=== PATIENT | female | born 1970 | race Caucasian/White ===

== ENCOUNTER → 2016-11-22 | Outpatient (CLI) | payer BC ==
[2016-11-22 12:12] LABS: Appearance,Urine Clear (Clear); Bilirubin,Urine Negative (Negative); Glucose,Urine (UA) Negative (Negative); Ketones,Urine Negative (Negative); Leukocyte Esterase,Urine Negative (Negative); Nitrite,Urine Negative (Negative); PH, Urine 6.5 (5.0-8.0); Protein,Urine Negative (Negative); Specific Gravity,Urine 1.016 (1.001-1.035); UA Billing (MACRO vs. MICRO) CHEM; Urobilinogen,Urine <2.0 mg/dL (<2.0)
--- NOTE | 2016-11-22 22:04 | WWHP ---
DATE OF SERVICE: 11/22/2016. CHIEF COMPLAINT: The patient is here for her routine gynecologic exam and mammogram. HPI: This is a 46-year-old G1, P1 with an LMP of 2007. The patient is status post endometrial ablation in 2007 and has been amenorrheic since then. She developed significant hot flashes and was seen by an cut off machine unloader who did blood testing, which confirmed that she is menopausal. The patient states they are tolerable and have been better with gabapentin which she uses for her chronic sciatica. She has been experiencing some discomfort in the area of her bladder. She states she will wake up very uncomfortable to the point where it is slightly painful and this is usually relieved when she voids. She has had some issues with bladder discomfort and bladder tenderness. She saw Dr. Campos over the last year. She states she was told to return if she is having urine symptoms or UTI symptoms. PAST MEDICAL HISTORY: Chronic back pain sciatica for many years, hiatal hernia. Dr. Bal is her primary care physician. MEDICATIONS: 1. Motrin 800 mg p.r.n. 2. Gabapentin daily. 3. Subutex t.i.d. ALLERGIES: BACTRIM AND MACROBID. PAST SURGICAL HISTORY: LEEP procedure of the cervix in 1997, [employer] endometrial ablation in 2007, upper endoscopy and colonoscopy in 2016. Past COMMUNICATIONS ADMINISTRATOR history: She did have a LEEP procedure in 1997 for an abnormal Pap smear and has been amenorrheic since an endometrial ablation. She states blood testing in 2016 confirmed menopause. She has no history of STDs. She was once told she had a small uterine fibroid. SOCIAL HISTORY: She admits to smoking about 1/2 pack of cigarettes per day denies alcohol and drug use. She has been since 2014. She works for a [employer]. FAMILY HISTORY: Unchanged from the 2015 H&P. REVIEW OF SYSTEMS: She has gained about 18 pounds over the last year. She denies respiratory or cardiac problems. GI: Some food seemed to have caused problems for her gallbladder. PHYSICAL EXAM: Blood pressure 131/86. Height 5 feet 9 inches. Weight 197 pounds. Temperature 98.2, pulse 80. This a well-developed, well-nourished white female who is alert and oriented x3 in no acute distress. HEENT is within normal limits. NECK: Supple without mass or thyromegaly. CHEST AND LUNGS: Clear to auscultation. HEART: Regular rate and rhythm. Breasts are without mass or discharge. Axillary exam negative for adenopathy. BACK: Negative for CVA tenderness. ABDOMEN: Soft, nontender, without palpable masses. PELVIC EXAM: Normal external genitalia. Cervix and vagina appear normal. There is no unusual discharge. There is no cervical motion tenderness. The uterus is midposition, nongravid size and nontender. There are no palpable adnexal masses or tenderness. There is minimal tenderness in the area of the bladder, without palpable masses. Rectal exam negative for mass or tenderness and is negative for occult blood. EXTREMITIES: Nontender. IMPRESSION: 1. A 46-year-old female is probably menopausal. 2. Minimal bladder tenderness otherwise unremarkable gynecologic exam. 3. Urinary symptoms consisting of bladder discomfort upon waking each morning. Differential diagnosis will be discomfort from a full bladder, urinary tract infection, interstitial cystitis or bladder spasms. At this time I doubt COMMUNICATIONS ADMINISTRATOR cause. She did have a negative pelvic ultrasound one year ago. PLAN: 1. Pap smear was performed. 2. Self-breast examination was discussed. 3. Mammogram will be done today. 4. Clean-catch midstream UA and C&S will be obtained. If this does not show signs of infection, I will ask her to see Dr. Campos, her urologist for re-evaluation if she continues to have bladder symptoms. 5. At this time I do not feel the pelvic ultrasound would be helpful, since she just had one last year which was negative. 6. She will return in one year and p.r.n.
--- NOTE | 2016-11-23 09:30 | MM ---
Reason for exam: screening (asymptomatic). Last mammogram was performed 1 year and 1 month ago. History: Patient is postmenopausal and has history of endometrial cancer at age 36. Family history of breast cancer in aunt at age 56. Physical Findings: A clinical breast exam by your physician is recommended on an annual basis and results should be correlated with mammographic findings. MG Screening Mammo w CAD Bilateral CC and MLO view(s) were taken. Prior study comparison: May 25, 2014, bilateral MG screening mammo w CAD. November 11, 2012, bilateral digital screening mammo w/CAD. The breast tissue is heterogeneously dense. This may lower the sensitivity of mammography. There is no discrete abnormality. ASSESSMENT: Negative, BI-RAD 1 RECOMMENDATION: Routine screening mammogram of both breasts in 1 year.
== END ==
LOC: WWCWWP 08:39
PROVIDERS: ATTEND Obstetrics & Gynecology
DX: Z12.31 Encounter for screening mammogram for malignant neoplasm of breast (principal); R39.15 Urgency of urination
CPT/HCPCS: 81003; 87086; G0202

== ENCOUNTER → 2018-02-27 | Outpatient (CLI) | payer BC ==
--- NOTE | 2018-02-28 14:09 | MM ---
Reason for exam: screening (asymptomatic). Last mammogram was performed 1 year and 3 months ago. History: Patient is postmenopausal and has history of endometrial cancer at age 36. Family history of breast cancer in aunt at age 56. Physical Findings: A clinical breast exam by your physician is recommended on an annual basis and results should be correlated with mammographic findings. MG 3D Screening Mammo W/Cad Bilateral CC and MLO view(s) were taken. Prior study comparison: November 22, 2016, bilateral MG screening mammo w CAD. October 29, 2015, bilateral MG 3d screening mammo w/cad. The breast tissue is heterogeneously dense. This may lower the sensitivity of mammography. No significant changes when compared with prior studies. ASSESSMENT: Negative, BI-RAD 1 RECOMMENDATION: Routine screening mammogram of both breasts in 1 year.
== END | disposition home or self-care (01) ==
LOC: RADMAMWWP 16:49
PROVIDERS: ATTEND Family Medicine
DX: Z12.31 Encounter for screening mammogram for malignant neoplasm of breast (principal)
CPT/HCPCS: 77063; 77067

== ENCOUNTER → 2022-03-03 | Outpatient (CLI) | payer BC ==
--- NOTE | 2022-03-04 03:20 | MR ---
EXAMINATION TYPE: MR knee RT wo con DATE OF EXAM: 03/03/2022 COMPARISON: None HISTORY: Right knee pain, pain behind the knee, painful kneecap, locking, and swelling for 1 month Multiplanar multiecho imaging of the right knee with no contrast. There is a large knee joint effusion. There is large popliteal cyst that measures 5 x 2.5 cm. The anterior and posterior cruciate ligaments are intact. There is a large horizontal defect in the p osterior horn of the lateral meniscus extending to the inferior surface. There is extensive abnormal increased signal in the anterior horn lateral meniscus. There is some degenerative thinning of the po sterior horn of the medial meniscus. There is vertical tear through the posterior horn medial meniscu s. The collateral ligaments appear intact. There is hypertrophic spurring of the femoral and tibial cond yles. There is minor spurring on the patella. 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 There is joint space narrowing more that is most noticeable in the lateral joint space. There is complex tear of the anterior horn lateral meniscus and oblique tear through the posterior horn of the lateral meniscus. There is degenerative thinning and vertical tear through the posterior horn of the medial meniscus. Large knee joint effusion and popliteal cyst. No ligamentous tear.
== END | disposition home or self-care (01) ==
LOC: RADMRIMAIN 16:23
PROVIDERS: ATTEND Family Medicine
DX: M17.11 Unilateral primary osteoarthritis, right knee (principal); M23.341 Other meniscus derangements, anterior horn of lateral meniscus, right knee

== ENCOUNTER → 2022-08-30 | Outpatient (CLI) | payer BC ==
--- NOTE | 2022-08-31 16:50 | MM ---
Reason for Exam: Screening (asymptomatic). Last mammogram was performed 4 year(s) and 6 month(s) ago. Patient History: Menarche at age 15. First Full-Term at age 25. Postmenopausal. Endometrial cancer, age 36. Maternal aunt had breast cancer, age 56. Risk Values: Luci 5 year model risk: 0.8%. NCI Lifetime model risk: 7.4%. Prior Study Comparison: 10/29/2015 Bilateral Screening Mammogram, [facility]. 11/22/2016 Bilateral Screening Mammogram, [facility]. 02/27/2018 Bilateral Screening Mammogram, [facility]. Tissue Density: The breast tissue is heterogeneously dense. This may lower the sensitivity of mammography. Findings: Analyzed By CAD. Pattern appears symmetrical and stable. No significant interval change is evident. No suspicious groups of microcalcifications, spiculated or lobular masses, architectural distortion or other secondary signs of malignancy are mammographically apparent. Overall Assessment: Benign, BI-RAD 2 Management: Screening Mammogram of both breasts in 1 year. A negative mammogram report should not preclude additional follow up of suspicious palpable abnormalities. Patient should continue monthly self breast exam. A clinical breast exam by your physician is recommended on an annual basis and results should be correlated with mammographic findings. Electronically signed and approved by: Chema Benz D.O. Radiologis
== END | disposition home or self-care (01) ==
LOC: RADMAMWWP 16:22
PROVIDERS: ATTEND Internal Medicine
DX: Z12.31 Encounter for screening mammogram for malignant neoplasm of breast (principal); Z78.0 Asymptomatic menopausal state; Z80.3 Family history of malignant neoplasm of breast
CPT/HCPCS: 77063; 77067

== ENCOUNTER → 2023-10-23 | Outpatient (CLI) | payer BC ==
--- NOTE | 2023-10-23 13:00 | CT ---
EXAMINATION TYPE: CT abdomen w con CT DLP: 809 mGycm, Automated exposure control for dose reduction was used. DATE OF EXAM: 10/23/2023 11:32 AM COMPARISON: CT abdomen pelvis most recent from 09/24/2015. CLINICAL INDICATION:Female, 53 years old with history of R31.9 hematuria; Hematuria TECHNIQUE: Axial CT abdomen w con;Sagittal and coronal reformats were created on a separate workstat ion. Contrast used:100 mL of Isovue 300 with IV Contrast, (none if empty) Oral contrast used: with Oral Contrast (none if empty) FINDINGS: LOWER CHEST: Unremarkable ABDOMEN LIVER: Simple appearing hepatic cyst. GALLBLADDER AND BILE DUCTS: Unremarkable. PANCREAS: Unremarkable. SPLEEN: Unremarkable. ADRENAL GLANDS: Unremarkable. KIDNEYS AND URETERS: No evidence of hydronephrosis or renal calculus. The ureters are unremarkable. Simple appearing renal cysts bilaterally. STOMACH AND BOWEL: No evidence of bowel obstruction. PERITONEUM/RETROPERITONEUM: No evidence of pneumoperitoneum or free fluid. VASCULATURE: No evidence of aortic aneurysm. MUSCULOSKELETAL: No acute osseous abnormalities LYMPH NODES: No gross evidence for lymphadenopathy. SOFT TISSUE/ABDOMINAL WALL: Unremarkable IMPRESSION: 1. No evidence for obstructive uropathy or renal mass. No renal calculi visualized. 2. Bilateral simple appearing renal cysts that needs no follow-up.
== END | disposition home or self-care (01) ==
LOC: RADCTMAIN 09:16
PROVIDERS: ATTEND Family Medicine
DX: N28.1 Cyst of kidney, acquired (principal); R31.9 Hematuria, unspecified
CPT/HCPCS: 74160; Q9967

== ENCOUNTER → 2023-11-01 | Outpatient (CLI) | payer BC ==
--- NOTE | 2023-11-01 14:47 | MM ---
Reason for Exam: Screening (asymptomatic). Last mammogram was performed 1 year(s) and 2 month(s) ago. Patient History: Menarche at age 15. First Full-Term at age 25. Postmenopausal. Endometrial cancer, age 36. Maternal aunt had breast cancer, age 56. Risk Values: Luci 5 year model risk: 0.9%. NCI Lifetime model risk: 7.1%. Prior Study Comparison: 11/22/2016 Bilateral Screening Mammogram, [facility]. 02/27/2018 Bilateral Screening Mammogram, [facility]. 08/30/2022 Bilateral MG 3D screening mammo w/cad, [facility]. Tissue Density: The breast tissue is heterogeneously dense. This may lower the sensitivity of mammography. Findings: Analyzed By CAD. There is no suspicious group of microcalcifications or new suspicious mass. Overall Assessment: Negative, BI-RAD 1 Management: Screening Mammogram of both breasts in [address] [facility] will attempt to contact patient to return for supplemental views and ultrasound if indicated. Patient should continue monthly self-breast exams. A clinical breast exam by your physician is recommended on an annual basis. This exam should not preclude additional follow-up of suspicious palpable abnormalities. Note on Luci scores and lifetime risk: 1. A Luci score greater than 3% is considered moderate risk. If this is the case, consider specialist referral to assess eligibility for a risk reducing agent. 2. If overall lifetime risk for the development of breast cancer is 20% or higher, the patient may qualify for future screening with alternating mammogram and breast MRI. Electronically signed and approved by: Rehan Helton DO
== END | disposition home or self-care (01) ==
LOC: RADMAMWWP 09:34
PROVIDERS: ATTEND Family Medicine
DX: Z12.31 Encounter for screening mammogram for malignant neoplasm of breast (principal); Z80.3 Family history of malignant neoplasm of breast; Z78.0 Asymptomatic menopausal state
CPT/HCPCS: 77063; 77067

== ENCOUNTER → 2024-12-23 | Outpatient (CLI) | payer BC ==
--- NOTE | 2024-12-24 07:32 | MM ---
Reason for Exam: Screening (asymptomatic). Last mammogram was performed 1 year(s) and 2 month(s) ago. Patient History: Menarche at age 15. First Full-Term at age 25. Postmenopausal. Endometrial cancer, age 36. Maternal aunt had breast cancer, age 56. Risk Values: Luci 5 year model risk: 0.9%. NCI Lifetime model risk: 7.0%. Prior Study Comparison: 02/27/2018 Bilateral Screening Mammogram, [facility]. 08/30/2022 Bilateral MG 3D screening mammo w/cad, [facility]. 11/01/2023 Bilateral MG 3D screening mammo w/cad, [facility]. Tissue Density: The breasts are heterogeneously dense, which may obscure small masses. Findings: Analyzed By CAD. There is no suspicious group of microcalcifications or new suspicious mass in either breast. Overall Assessment: Negative, BI-RAD 1 Management: Screening Mammogram of both breasts in 1 year. . Patient should continue monthly self-breast exams. A clinical breast exam by your physician is recommended on an annual basis. This exam should not preclude additional follow-up of suspicious palpable abnormalities. Note on Luci scores and lifetime risk: 1. A Luci score greater than 3% is considered moderate risk. If this is the case, consider specialist referral to assess eligibility for a risk reducing agent. 2. If overall lifetime risk for the development of breast cancer is 20% or higher, the patient may qualify for future screening with alternating mammogram and breast MRI. [facility], , 12/24/2024 7:29 AM. Electronically signed and approved by: Paul Rhodes M.D. Radiologis
== END | disposition home or self-care (01) ==
LOC: RADMAMWWP 15:56
PROVIDERS: ATTEND Family Medicine
DX: Z12.31 Encounter for screening mammogram for malignant neoplasm of breast (principal); R92.333 Mammographic heterogeneous density, bilateral breasts; Z78.0 Asymptomatic menopausal state; Z80.3 Family history of malignant neoplasm of breast
CPT/HCPCS: 77063; 77067